=== PATIENT | male | born 1990 | race Caucasian/White ===

== ENCOUNTER 2024-01-03 02:07 | Emergency (ER) | payer OTHER ==
[2024-01-03 02:24] VITALS: BP 121/86; PULSE 93; RESP 20; TEMP 98.6; BMI 77.9
== END 2024-01-03 03:15 | disposition home or self-care (01) ==
LOC: FER 02:07
PROC: 09C4XZZ Extirpation of Matter from Left External Auditory Canal, External Approach (ICD-10-PCS; principal; 2024-01-03)
DX: T16.2XXA Foreign body in left ear, initial encounter (principal)
CPT/HCPCS: 69200; 99283-25